=== PATIENT | male | born 1960 | race Caucasian/White ===

== ENCOUNTER 2016-11-25 15:57 | Observation (INO) | payer OTHER ==
[~2016-11-25] VITALS: Ht 172.7 cm; Wt 73.4 kg
--- NOTE | ~2016-11-25 | ECH ---
Transthoracic Echocardiography Report (TTE) Demographics Patient Name EMELYN PARK Date of Study 11/26/2016 Patient Number [id number] Visit Number [id number] Date of 1960 Room Number 432 Accession Number [id number] Gender Male Age 56 year(s) Referring Roel Massey Pants Presser Automatic Nallely Corrigan Physician RDCS Physician Interpreting Shilpa HARMON Nurse Case Manager Physician [place] Supervising Ordering Physician Roel Massey MD/MLP Nurse Stress Auto Body Repairman Conclusions Contractility Score Summary Normal Left Ventricular contractility was noted. Summary Technically adequate exam. The estimated left ventricular ejection fraction is 60-65%. Normal right ventricle structure and function. Trivial tricuspid regurgitation by color Doppler. Insufficient jet to calculate pulmonary pressures. Recommendation The patient will be given the results of this study by the physician who ordered the exam. Procedure Type of Study TTE procedure:Echo Complete SF. Procedure Date Date: 11/26/2016 Start: 09:38 AM Technical Quality: Adequate visualization Indications:Pulmonary embolus and Atypical Chest Pain. Appropriate Use Criteria: 9 Height: 68 inches Weight: 168 pounds BSA: 1.9 m Rhythm: NSR HR: 80 bpm BP: 101/71 mmHg M-Mode/2D Measurements LV Diastolic Dimension: 4.06 cm LV Systolic Dimension: 2.32 cm LV Septum Diastolic: 0.82 cm LV PW Diastolic: 0.88 cm AO Root Dimension: 3.71 cm Cardiac Output: 6.27 l/min LA Dimension: 2.93 cm Cardiac Index: 3.3 l/min*m RV Diastolic Dimension: 3.9 cm LA volume index: 22 ml/m LVOT: 2.27 cm LVOT VTI: 19.38 cm RV Base: 2.9 cm LV Stroke volume: 78.39 ml RV Mid: 1.9 cm LV Stroke volume index: 41.26 ml/m TAPSE: 2.6 cm TDI-S': 14 cm/s Doppler Measurements AV Peak Velocity: 1.1 m/s MV Peak E-Wave: 0.77 m/s AV Peak Gradient: 4.84 mmHg MV Peak A-Wave: 0.45 m/s AV Mean Gradient: 2.16 mmHg MV E/A Ratio: 1.72 LVOT Peak Velocity: 1.03 m/s MV P1/2t: 48.5 msec AV Area (Continuity):3.96 cm MV Deceleration Time: 116 msec MV Area (PHT): 4.54 cm PV Peak Velocity: 0.87 m/s E' Septal Velocity: 0.09 m/s PV Peak Gradient: 3.05 mmHg E' Lateral Velocity: 0.12 m/s A' Septal Velocity: 0.13 m/s A' Lateral Velocity: 0.14 m/s RA Area: 13.96 cm Findings Left Ventricle Normal left ventricle size and function. Diastolic assessment reveals normal relaxation. Right Ventricle Normal right ventricle structure and function. Left Atrium Normal left atrial size. Right Atrium Normal right atrial size. Mitral Valve Normal mitral valve structure and function. Trivial mitral regurgitation by color Doppler. Aortic Valve Normal aortic valve structure and function. Tricuspid Valve Normal tricuspid valve structure and function. Trivial tricuspid regurgitation by color Doppler. Insufficient jet to calculate pulmonary pressures. Pulmonic Valve Normal pulmonic valve structure and function. Pericardial Effusion No evidence of pericardial effusion. Miscellaneous Visualized portions of the aortic root and ascending aorta appear normal in size. Pleural Effusion No evidence of pleural effusion. Contractility Score LV regional wall motion:(0-Non visualized 1-Normal 2-Hypokinesis 3-Akinesis 4-Dyskinesis 5-Aneurysm) Signature
--- NOTE | 2016-11-26 12:24 | HP ---
ADMIT: 11/25/2016 RM/LOC: 432 [facility] MR#: [id number] [address] [facility] [address] [place] [id number] EMELYN PARK [address] [place] [address] History and Physical SEX: M AGE: 56 : 1960 DATE OF SERVICE: CHIEF COMPLAINT: Chest pain. HISTORY OF PRESENT ILLNESS: Emelyn is a pleasant 56-year-old male, who presented to the outpatient clinic today for complaints of recurrent chest pain. His history actually begins back in September. On 10/11/2016, he presented with right-sided flank pain. At that time, he was found to have acute pneumonia. He was treated with Rocephin and Levaquin. He was followed up a few days later and had significantly improved. We continued on oral antibiotics at that time. Then about October 23, he again began to complain of some chest pain. Chest x-ray was improved and he was started on some prednisone. He did improve further with this and was able to return to work. On November 18, he said he again had return of his symptoms. He said he felt just the same as when he had pneumonia, but this time it was left-sided. He presented to the outpatient clinic here and was evaluated by my partner. He said he reported that his symptoms felt exactly the same as his pneumonia. So, he was again started on Levaquin and prednisone. His symptoms, however, have persisted. Therefore, he returned again today for further evaluation. He denies any shortness of breath, but has felt fatigued. No fevers or chills. We repeated labs in the clinic and it showed a mildly elevated white blood cell count of 13.6. Normal renal function. Normal electrolytes. Sed rate was normal at 3 and CRP normal at 1.0. With his recurrent symptoms, I recommended CT scan. This was performed and verbal report was called showing bilateral PE with left-sided pulmonary infarction. There were also findings concerning for pneumonia. The patient was contacted immediately for this result. It was recommended that he be hospitalized and was planning for pulmonology evaluation, however, pulmonology is unavailable. Discussed with the patient, he could be admitted at our local facility to initiate anticoagulation or could be evaluated in the emergency department at a local facility with available pulmonology coverage. At that time, he said he did not want to be admitted and instead wanted to try doing shot as an outpatient. Discussed risks and benefits of this. A few hours later, he called back and said he had changed his mind and instead wanted to be admitted here locally with outpatient pulmonology follow up. PAST MEDICAL HISTORY: 1. BPH. 2. Hypothyroidism. 3. Positive rheumatoid factor. 4. History of psoriasis. MEDICATIONS: 1. Levothyroxine 75 mcg daily. 2. Levaquin 750 mg daily that was initiated on November 19. 3. prednisone 40 mg daily that was initiated on November 19 and completed yesterday. ALLERGIES: TO PENICILLIN. ADMIT: 11/25/2016 RM/LOC: 432 [facility] MR#: [id number] [address] [id number] EMELYN PARK [address] [place] [address] History and Physical SEX: M AGE: 56 : 1960 FAMILY HISTORY: Mother had heart disease and lung disease related to smoking. 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 He is a former smoker. He is currently smoke free. He denies alcohol or illicit drug use. He is . He is generally active. REVIEW OF SYSTEMS: As per HPI, otherwise reviewed and negative. PHYSICAL EXAMINATION: VITAL SIGNS: Temperature 96.7, pulse 80, respiratory rate 14, and blood pressure 112/72. Weight 170 pounds (BMI 25). GENERAL: The patient is awake, alert, in no acute distress. Cooperative with exam. HEENT: Within normal limits. HEART: Regular rate and rhythm. No murmurs. LUNGS: Clear to auscultation bilaterally. No crackles or wheezes. ABDOMEN: Soft, nontender, nondistended. Normal bowel sounds. EXTREMITIES: Warm and dry. No edema. NEUROLOGIC: Cranial nerves II through XII grossly intact. No focal neurologic deficit. LABORATORY DATA: A CBC with white blood cell count of 13.6, hemoglobin 15.4, and platelets 331. Metabolic panel with creatinine of 0.9. AST and ALT are within normal limits and glucose of 96. TSH is 4.82. Sed rate is 3. CRP is 1.0. IMAGING: Verbal report of chest CT scan showed bilateral pulmonary emboli with signs consistent with pulmonary infarction. Please see electronic record for full details. ASSESSMENT AND PLAN: 1. Pulmonary embolism. We will start on anticoagulation. 2. Pneumonia. We will continue antibiotics. 3. Chronic hypothyroidism. We will continue his replacement. 4. Chest pain secondary to pulmonary embolism. We will work to control the pain and other symptoms. 5. Disposition. The patient has been very hesitant for admission and is only agreeable to stay at least one night. We will monitor initiation of anticoagulation and workup further cardiopulmonary disease. Kristie Sevilla MD/ william JOB #: [id number] CC: Kristie Sevilla, Attending Physician ADMIT: 11/25/2016 RM/LOC: 432 [facility] MR#: [id number] [facility] [address] [id number] EMELYN PARK [address] [place] [address] History and Physical SEX: M AGE: 56 : 1960 Kristie Sevilla Family Physician
[2016-11-27] MEDS ORDERED: LEVOFLOXACIN750 MG PO (06:45)
[2016-11-27] MEDS ORDERED: LOVENOX DP80 MG/0.8 SQ (06:46)
[2016-11-27] MEDS ORDERED: SYNTHROID DP0.075 MG PO (06:46)
== END 2016-11-26 15:06 | disposition home or self-care (01) ==
LOC: 4PCU 15:57
PROVIDERS: ADMIT Family Medicine
DX: I26.99 Other pulmonary embolism without acute cor pulmonale (principal); J18.9 Pneumonia, unspecified organism; E03.9 Hypothyroidism, unspecified; N40.0 Benign prostatic hyperplasia without lower urinary tract symptoms; Z87.891 Personal history of nicotine dependence; Z79.899 Other long term (current) drug therapy; Z88.0 Allergy status to penicillin